=== PATIENT | male | born 1950 ===

== ENCOUNTER 2019-01-11 15:20 | Outpatient (CLI) | payer MEDICARE ==
--- NOTE | 2019-01-11 15:46 | ULT ---
Exam: Thyroid ultrasound HISTORY: Nontoxic single thyroid nodule Comparison: None TECHNIQUE: Sagittal and transverse imaging of the thyroid gland is performed. FINDINGS: Thyroid isthmus measures 0.3 cm Right thyroid lobe is 5.1 x 3.2 x 2.9 cm Left thyroid lobe measures 3.9 x 1.4 x 1.0 cm. There is a complex cyst occupying the majority the right thyroid lobe measuring 2.8 x 3.1 x 4.1 cm. T here is a simple cyst in lower pole left thyroid lobe. There is a complex cyst in the upper pole of the lobe measuring 0.9 x 0.8 x 1.1 cm. IMPRESSION: Dominant nodule in the right thyroid lobe. Nodule has a TI-RADS calculator score of TR 4, moderately suspicious. Fine-needle aspiration is recommended. Transcribed Date/Time: 01/11/2019 4:09 PM
== END 2019-01-11 15:21 | disposition home or self-care (01) ==
LOC: BICULT 15:20
PROVIDERS: ATTEND Otolaryngology Plastic Surgery within the Head & Neck
DX: E04.1 Nontoxic single thyroid nodule (principal)
CPT/HCPCS: 76536